=== PATIENT | male | born 1945 | race Caucasian/White ===

== ENCOUNTER 2019-05-25 05:35 | Outpatient (RCR) | payer MEDICARE, MEDICAID, SELFPAY | END 2019-06-07 00:01 | LOC: ONCMED 05:35 | PROVIDERS: Family Provider Physician Assistant; Visit Provider Internal Medicine Hematology & Oncology | DX: D72.829 Elevated white blood cell count, unspecified (principal); J44.9 Chronic obstructive pulmonary disease, unspecified; L40.9 Psoriasis, unspecified; F17.210 Nicotine dependence, cigarettes, uncomplicated; Z79.52 Long term (current) use of systemic steroids ==

== ENCOUNTER 2019-06-22 14:17 | Outpatient (CLI) | payer MEDICARE, MEDICAID, SELFPAY ==
[2019-06-22 15:47] LABS: Basophils # 0.1 10^3/uL (0.0-0.1); Basophils % 0.7 %; Eosinophils # 0.5 10^3/uL (0.0-0.8); Eosinophils % 3.6 %; Hematocrit 37.8 % (42.0-52.0); Hemoglobin 12.2 g/dL (11.7-16.6); Lymphocytes # 4.5 10^3/uL (0.8-4.8); Lymphocytes % 31.8 %; Mean Corpuscular HGB Conc 32.3 g/dL (30.0-36.0); Mean Corpuscular Hemoglobin 29.2 pg (28.0-34.0); Mean Corpuscular Volume 90.4 fL (80-94); Mean Platelet Volume 11.3 fL (7.4-10.4); Monocytes # 1.2 10^3/uL (0.2-0.9); Monocytes % 8.4 %; Neutrophils # 7.7 10^3/uL (1.8-7.7); Neutrophils % 54.4 %; Nucleated Red Blood Cells % 0 %; Platelet Count 271 10^3/cmm (130-400); Red Blood Count 4.18 10^6/uL (4.1-5.3); White Blood Count 14.2 10^3/uL (4.0-10.0)
== END 2019-06-22 14:18 | disposition home or self-care (01) ==
LOC: ONCMED 14:21
PROVIDERS: Family Provider Physician Assistant; PCP Nurse Practitioner; Visit Provider Internal Medicine Hematology & Oncology
DX: D72.829 Elevated white blood cell count, unspecified (principal)
CPT/HCPCS: 85025

== ENCOUNTER 2019-06-23 13:06 | Outpatient (CLI) | payer MEDICARE, MEDICAID, SELFPAY ==
--- NOTE | 2019-06-23 13:40 | ONC FU_ITS ---
Dr. Mcconnell follow up note Patient: Fernando Hicks Unit #: [id number]: 1945 Dicatated By: Pilar Mcconnell M.D.Date of Visit:Jun 23, 2019 Onc Med Follow-up/Prog Note History of Present Illness: Mr. Fernando Hicks, is a 73-year-old gentleman with long-standing history of isolated leukocytosis as per patient and his , it was about 3-4 years ago when they were told about elevated white blood count and it was fluctuating type, sometime treated with oral antibiotics with resolution of leukocytosis. Denies any history of thrombocytopenia or anemia, denies any hematological evaluation done in the past. Denies any abdominal fullness or splenomegaly. Denies any peripheral lymphadenopathy. Denies any night sweats, fever or chills but history of off and on weight loss due to poor appetite. Patient has history of psoriasis involving upper extremities for which he has been using topical steroids triamcinolone for the last 3 years on a regular basis. He has a 60+ year history of smoking, still smoke about pack and half daily, No history of nosebleed or gum bleed, no history of melena or hematochezia or jaundice. Denies any fever or chills, denies any sinus related symptoms or dysuria or hematuria. Came for follow-up, denies any specific complaints, no fever or chills, no nausea or vomiting but mild chronic nonproductive cough still smoke about a pack a day, he is on home oxygen for severe COPD. Medications: Amiodarone HCl 1 Tablet (of 200 mg) Oral daily, Aspirin 1 Tablet (of 81 mg) Oral daily, DULoxetine HCl 1 Capsule (of 60 mg) Capsule Delayed Release Particles Oral daily, Esomeprazole Magnesium 1 Capsule (of 40 mg) Capsule Delayed Release Oral daily, Ferrous Sulfate 1 Tablet (of 325 (65 fe) mg) Oral daily, Furosemide 1 Tablet (of 40 mg) Oral daily, guaiFENesin 1 Tablet (of 600 mg) Oral b.i.d., HYDROcodone-Acetaminophen 1 Tablet (of 10-325 mg) Oral q 6 hours PRN, Metoprolol Tartrate 1 Tablet (of 50 mg) Oral b.i.d., Mexiletine HCl 1 Capsule (of 200 mg) Oral t.i.d., Nitroglycerin Intravenous, Potassium Chloride ER 1 Tablet (of 10 meq) Tablet, controlled release Oral daily, Ranexa 1 Tablet (of 500 mg) Tablet SR 12 HR Oral b.i.d., Triamcinolone Acetonide 1 (0.1 %) Cream Topical b.i.d., Vitamin D2 1 Tablet (of 2000 Units) Oral q 7 days Allergies: Bystolic, Carvedilol, Codeine Sulfate, Entresto, Lipitor, Lopid, Pletal, and Zocor. Review of Systems: Review of Systems is not available for this patient. Vital Signs: Performed on Jun 23, 2019 13:15 Height - 71.00 in Weight - 146.8 lbs (HIGH) BSA - 1.85 sq.m BMI - 20.47 Temperature - 97.9 F (LOW) Pulse - 68 /min Respiration - 26 /min BP - 121/56 mm(hg) O2 Sat - 98 % Pain - 6 Performance Status: Perf. Status is not available for this patient. Physical Examination: ENMT - No oral exudates, ulcers, masses, thrush or mucositis. Oropharynx clear. Tongue normal, Respiratory - Poor air entry,, Cardiovascular - Regular rate and rhythm of heart, Abdomen - Non-tender, non-distended, Good bowel sounds. No guarding or rebound tenderness. No pulsatile masses, Extremities - no edema. Lab/Imaging: Test performed on Jun 22, 2019 07:05 WBC 14.2 10 3/uL RBC 4.18 10^12/L HGB 12.2 g/dL HCT 37.8 % MCV 90.4 fL MCH 29.2 pg MCHC 32.3 g/dL RDW 14.0 % Platelet Count 271 10 3/cmm MPV 11.3 fL Lymphocytes 4.5 10^9/L Neutrophils 0.1 10 3/uL Monocytes 1.2 10^9/L Eosinophils 0.5 10^9/L Basophils 0.1 10^9/L Neutrophil % 3.6 % Manual Lymphocytes 31.8 % Manual Monocytes 8.4 % Manual Eosinophils 3.6 % Manual Basophils 0.7 % NRBCs 0.0 /100 WBC Test performed on May 25, 2019 15:10 Flow Cytometry, Acute Leukemia SEE SCANNED REPORT Test performed on May 24, 2019 09:10 Lymphocyte % 21.9 % Monocyte % 5.6 % Eosinophil % 3.0 % Basophils % 0.6 % Impression: Isolated mild leukocytosis etiology unclear myeloproliferative disorder versus reactive leukocytosis, most likely reactive especially due to long-term use of topical steroids or due to chronic smoking itself or related bronchitis or pulmonary inflammation/COPD chronic inflammation like psoriasis or subclinical upper respiratory infection due to chronic smoking. Considering his age Early myeloproliferative disorder like CML/CMML cannot be ruled out but less likely as .Flow cytometry on the whole blood done on 05/25/2019 showed no aberrant myeloid or lymphoid population detected Psoriasis involving upper extremities on topical steroids triamcinolone on a regular basis for the last 3 years 60+ year history of Chronic smoking still active Plan: Discussed with patient regarding his labs white blood count 14.2 hemoglobin 12.2 crit 37.8 platelets 271,000 and flow cytometry done on 05/25/2019 showed no aberrant myeloid or lymphoid population detected Clinically, patient is doing well no signs symptoms suggestive of acute infection but patient may have underlying chronic bronchitis due to chronic smoking and he is on home oxygen for the severe COPD. As far as isolated leukocytosis concern, flow cytometry on whole blood showed no aberrant myeloid or lymphoid population seen e.g. no evidence of myeloproliferative disorder so etiology of this isolated leukocytosis is most likely due to chronic smoking or underlying chronic bronchitis, COPD due to smoking or chronic skin disorder like psoriasis. No further workup is required from hematological point of view. We will see him on as-needed basis. he was advised to quit smoking and was offered any assistance he may need Signed By: Pilar Mcconnell M.D. <<Signature on File>>
== END 2019-06-23 13:07 | disposition home or self-care (01) ==
LOC: ONCMED 13:06
PROVIDERS: Family Provider Physician Assistant; PCP Physician Assistant; Visit Provider Internal Medicine Hematology & Oncology
DX: D72.829 Elevated white blood cell count, unspecified (principal); L40.8 Other psoriasis; Z79.899 Other long term (current) drug therapy; F17.210 Nicotine dependence, cigarettes, uncomplicated; J44.9 Chronic obstructive pulmonary disease, unspecified; Z99.81 Dependence on supplemental oxygen; Z79.82 Long term (current) use of aspirin; Z79.891 Long term (current) use of opiate analgesic; Z79.52 Long term (current) use of systemic steroids
CPT/HCPCS: G0463

== ENCOUNTER 2019-09-13 16:07 | Emergency (ER) | payer MEDICARE, MEDICAID, SELFPAY ==
[2019-09-13] VITALS (8 sets, daily range): BP systolic 106–130; BP diastolic 55–63; PULSE 60–80; RESP 16–24; TEMP 36.8; O2SAT 95–100; BMI 20.9
--- NOTE | 2019-09-13 16:16 | ED_ITS ---
Documented by User: Claudette Daniel DO 09/13/19 16:45 HPI - SOB/Dyspnea General: Chief Complaint: Shortness of Breath/Dyspnea Stated Complaint: WEAKNESS, SOB, POOR INTAKE Time Seen by Provider: 09/13/19 16:12 History of Present Illness: HPI Narrative: pt states he has been short of breath and weak for several dayys, he is confused and slurring his speech. He states he is normally on 4LNC O2 but today he turned it up to 6 L NC. He has been using his nebs constantly. He has had poor intake. MD elicited complaint: shortness of breath, cough and chest pain Pertinent past history: COPD Onset (ago): day(s) Context: recent illness Timing: constant Severity: severe Exacerbating factors: lying flat, exertion, movement and deep breaths Relieving factors: oxygen, rest and bronchodilators Known history of: COPD and congestive heart failure Associated symptoms: Reports chest pain, cough and diaphoresis; Deny abdominal pain, fever(s), nausea or vomiting Treatment prior to arrival: oxygen and bronchodilator Review of Systems General: Reports: 10 or more systems reviewed and unremarkable except in HPI and below Const: Reports: chills, body aches and diaphoresis; Denies: fever ENMT: Denies: throat pain Card: Reports: chest pain Resp: Reports: shortness of breath, productive cough and wheezing GI: Denies: abdominal pain, nausea, vomiting, diarrhea, constipation or blood in stool Musc: Denies: back pain or extremity swelling Skin/Breast: Denies: rash Neuro: Reports: difficulty walking and confusion; Denies: headache, numbness in extremities or weakness in extremities PFS ED PFSH: Social History Smoking and tobacco status: current every day smoker Physical Exam Const: COMMON NORMALS: no apparent distress GENERAL APPEARANCE: cooperative and lethargic NUTRITIONAL APPEARANCE: cachectic ORIENTATION/CONSCIOUSNESS: Yes oriented to person, Yes oriented to place, Yes oriented to time and Yes lethargic Neck/C-Spine: COMMON NORMALS: full ROM and no lymphadenopathy GENERAL: Yes normal visual inspection Chest: COMMONS NORMALS: inspection of chest normal Resp: COMMON NORMALS: normal respiratory effort, no retractions and no use of accessory muscles EFFORT & INSPECTION: Yes able to speak in complete sentences and No respiratory distress AUSCULTATION: wheezes expiratory wheezes and throughout and diminished lung sounds Cardio: COMMON NORMALS: regular rate, regular rhythm and no murmurs RATE: regular rate RHYTHM: regular rhythm GI: COMMON NORMALS: normal to inspection, nondistended, normoactive bowel sounds and non-tender INSPECTION: Yes normal to inspection AUSCULTATION: Yes normoactive bowel sounds : COMMON NORMALS: Yes no CVA tenderness BLADDER/KIDNEY EXAM: Yes no CVA tenderness Back/Pelvis: COMMON NORMALS: no CVA tenderness Extremity: GENERAL: Yes normal exam except as noted, No calf tenderness and Yes edema (+1) Neuro: SENSORIUM/ORIENTATION: Yes oriented to person, Yes oriented to place, Yes oriented to time and Yes lethargic GAIT: Yes unable to assess gait Course Vital Signs: Vital signs: Vital Signs Temperature 98.3 F 09/13/19 16:14 Pulse Rate 60 09/13/19 19:38 Respiratory Rate 16 09/13/19 19:38 Blood Pressure 130/63 09/13/19 19:38 Pulse Oximetry 96 09/13/19 19:38 MDM - SOB/Dyspnea Lab Data: Attestation: I reviewed the patient's lab results. Labs: Lab Results 09/13/19 09/13/19 09/13/19 Range/Units 07:54 16:20 16:20 WBC 16.2 H (4.0-10.0) 10^3/ uL RBC 3.39 L (4.1-5.3) 10^6/u L Hgb 10.0 L (11.7-16.6) g/dL Hct 31.7 L (42.0-52.0) % MCV 93.5 (80-94) fL MCH 29.5 (28.0-34.0) pg MCHC 31.5 (30.0-36.0) g/dL RDW 13.8 (12.1-15.1) % Plt Count 277 (130-400) 10^3/c mm MPV 11.2 H (7.4-10.4) fL Neut % (Auto) 82.0 % Lymph % (Auto) 7.6 % Dickson % (Auto) 8.6 % Eos % (Auto) 0.1 % Baso % (Auto) 0.4 % Neut # (Auto) 13.3 H (1.8-7.7) 10^3/u L Lymph # (Auto) 1.2 (0.8-4.8) 10^3/u L Dickson # (Auto) 1.4 H (0.2-0.9) 10^3/u L Eos # (Auto) 0.0 (0.0-0.8) 10^3/u L Baso # (Auto) 0.1 (0.0-0.1) 10^3/u L Nucleated RBC % (a uto) 0.1 % Nucleated RBCs # 0.0 /100WBC PT (10.5-13.3) SECO NDS INR (0.8-1.2) APTT (23.9-36.7) SECO NDS Specimen Type Sample Site ABG pH (7.35-7.45) ABG pCO2 (35-45) mmHg ABG pO2 (80.0-100.0) mmH g ABG HCO3 (22-26) mmol/L ABG O2 Saturation ABG Base Excess (-2.0-2.0) mmol/ L Geraldo Test A-a O2 Gradient (5-10) mmHg Hematocrit (42-52) % Hgb O2 Saturation (95-100) % Carboxyhemoglobin (0.4-20.1) %THgb Methemoglobin (0.4-1.5) % Total Hemoglobin (14-18) g/dL Ionized Calcium (1.1-1.4) mmol/L O2 Delivery Device O2 Liters/Min % FiO2 % Fur Machine Operator ID Sodium 132 L (136-145) mmol/L Potassium 4.8 (3.5-5.1) mmol/L Chloride 95 L (98-107) mmol/L Carbon Dioxide 19 L (22-29) mmol/L Anion Gap 22.8 H (5-19) BUN 39 H (8-23) mg/dL Creatinine 1.7 H (0.7-1.2) mg/dL Glucose 130 H (65-115) mg/dL Calculated Osmolal ity 273 L (285-295) mOsm/k g Lactate (0.5-2.2) mmol/L Calcium 9.7 (8.5-10.5) mg/dL Total Bilirubin 0.9 (0.15-1.2) mg/dL AST 503 H (0-40) U/L ALT 564 H (0-41) U/L Alkaline Phosphata se 312 H (40-130) IU/L Ammonia (16-60) umol/L Troponin T Baselin e 317 H* (0-15) ng/mL Troponin T 120 Min barrow (0-15) ng/mL Delta Troponin T NT-Pro-B Natriuret Pep 14796 H (0-125) pg/mL Total Protein 7.3 (6.6-8.7) g/dL Albumin 4.0 (3.5-5.2) g/dL Globulin 3.3 (1.3-4.6) g/dL Lipase (13-60) U/L Urine Color (Yellow) Urine Appearance (CLEAR) Urine pH (5-7) Ur Specific Gravit y (1.005-1.030) Urine Protein (Negative) Urine Glucose (UA) (Normal) Urine Ketones (Negative) Urine Blood (Negative) Urine Nitrate (Negative) Urine Bilirubin (NEGATIVE) Urine Urobilinogen (Negative) mg/dL Ur Leukocyte Shanta ase (Negative) Urine RBC (0-2) /hpf Urine WBC (0-5) /hpf Ur Squamous Epith Cells (0-5) Urine Bacteria (NONE) Salicylates (3-10) mg/dL Urine Opiates Scre en (Negative) ng/mL Acetaminophen (10-30) ug/mL Ur Barbiturates Sc reen (Negative) ng/mL Ur Phencyclidine S crn (Negative) ng/mL Ur Amphetamines Sc reen (Negative) ng/mL U Benzodiazepines Scrn (Negative) ng/mL Urine Cocaine Scre en (Negative) ng/mL U Marijuana (THC) Screen (Negative) ng/mL Ethyl Alcohol (0-10) mg/dL Influenza Type A A g (Negative) Influenza Type B A g (Negative) 09/13/19 09/13/19 09/13/19 Range/Units 16:20 16:20 16:26 WBC (4.0-10.0) 10^3/ uL RBC (4.1-5.3) 10^6/u L Hgb (11.7-16.6) g/dL Hct (42.0-52.0) % MCV (80-94) fL MCH (28.0-34.0) pg MCHC (30.0-36.0) g/dL RDW (12.1-15.1) % Plt Count (130-400) 10^3/c mm MPV (7.4-10.4) fL Neut % (Auto) % Lymph % (Auto) % Dickson % (Auto) % Eos % (Auto) % Baso % (Auto) % Neut # (Auto) (1.8-7.7) 10^3/u L Lymph # (Auto) (0.8-4.8) 10^3/u L Dickson # (Auto) (0.2-0.9) 10^3/u L Eos # (Auto) (0.0-0.8) 10^3/u L Baso # (Auto) (0.0-0.1) 10^3/u L Nucleated RBC % (a uto) % Nucleated RBCs # /100WBC PT 19.50 H (10.5-13.3) SECO NDS INR 1.59 H (0.8-1.2) APTT 30.7 (23.9-36.7) SECO NDS Specimen Type Arterial Sample Site Brachial, left ABG pH 7.41 (7.35-7.45) ABG pCO2 30.0 L (35-45) mmHg ABG pO2 114.0 H (80.0-100.0) mmH g ABG HCO3 19.0 L (22-26) mmol/L ABG O2 Saturation 98.8 ABG Base Excess -4.8 L (-2.0-2.0) mmol/ L Geraldo Test Pos A-a O2 Gradient 98.4 H (5-10) mmHg Hematocrit 31.4 L (42-52) % Hgb O2 Saturation 96.8 (95-100) % Carboxyhemoglobin 1.0 (0.4-20.1) %THgb Methemoglobin 1.0 (0.4-1.5) % Total Hemoglobin 10.2 L (14-18) g/dL Ionized Calcium 1.2 (1.1-1.4) mmol/L O2 Delivery Device Nc O2 Liters/Min 4.0 % FiO2 36.0 % Fur Machine Operator ID cak Sodium 134.0 (136-145) mmol/L Potassium 4.8 (3.5-5.1) mmol/L Chloride (98-107) mmol/L Carbon Dioxide (22-29) mmol/L Anion Gap (5-19) BUN (8-23) mg/dL Creatinine (0.7-1.2) mg/dL Glucose 119.0 H (65-115) mg/dL Calculated Osmolal ity (285-295) mOsm/k g Lactate 2.6 H (0.5-2.2) mmol/L Calcium (8.5-10.5) mg/dL Total Bilirubin (0.15-1.2) mg/dL AST (0-40) U/L ALT (0-41) U/L Alkaline Phosphata se (40-130) IU/L Ammonia (16-60) umol/L Troponin T Baselin e (0-15) ng/mL Troponin T 120 Min barrow (0-15) ng/mL Delta Troponin T NT-Pro-B Natriuret Pep (0-125) pg/mL Total Protein (6.6-8.7) g/dL Albumin (3.5-5.2) g/dL Globulin (1.3-4.6) g/dL Lipase (13-60) U/L Urine Color (Yellow) Urine Appearance (CLEAR) Urine pH (5-7) Ur Specific Gravit y (1.005-1.030) Urine Protein (Negative) Urine Glucose (UA) (Normal) Urine Ketones (Negative) Urine Blood (Negative) Urine Nitrate (Negative) Urine Bilirubin (NEGATIVE) Urine Urobilinogen (Negative) mg/dL Ur Leukocyte Shanta ase (Negative) Urine RBC (0-2) /hpf Urine WBC (0-5) /hpf Ur Squamous Epith Cells (0-5) Urine Bacteria (NONE) Salicylates (3-10) mg/dL Urine Opiates Scre en (Negative) ng/mL Acetaminophen (10-30) ug/mL Ur Barbiturates Sc reen (Negative) ng/mL Ur Phencyclidine S crn (Negative) ng/mL Ur Amphetamines Sc reen (Negative) ng/mL U Benzodiazepines Scrn (Negative) ng/mL Urine Cocaine Scre en (Negative) ng/mL U Marijuana (THC) Screen (Negative) ng/mL Ethyl Alcohol (0-10) mg/dL Influenza Type A A g (Negative) Influenza Type B A g (Negative) 04/07/20 04/07/20 04/07/20 Range/Units 17:04 18:07 18:07 WBC (4.0-10.0) 10^3/ uL RBC (4.1-5.3) 10^6/u L Hgb (11.7-16.6) g/dL Hct (42.0-52.0) % MCV (80-94) fL MCH (28.0-34.0) pg MCHC (30.0-36.0) g/dL RDW (12.1-15.1) % Plt Count (130-400) 10^3/c mm MPV (7.4-10.4) fL Neut % (Auto) % Lymph % (Auto) % Dickson % (Auto) % Eos % (Auto) % Baso % (Auto) % Neut # (Auto) (1.8-7.7) 10^3/u L Lymph # (Auto) (0.8-4.8) 10^3/u L Dickson # (Auto) (0.2-0.9) 10^3/u L Eos # (Auto) (0.0-0.8) 10^3/u L Baso # (Auto) (0.0-0.1) 10^3/u L Nucleated RBC % (a uto) % Nucleated RBCs # /100WBC PT (10.5-13.3) SECO NDS INR (0.8-1.2) APTT (23.9-36.7) SECO NDS Specimen Type Sample Site ABG pH (7.35-7.45) ABG pCO2 (35-45) mmHg ABG pO2 (80.0-100.0) mmH g ABG HCO3 (22-26) mmol/L ABG O2 Saturation ABG Base Excess (-2.0-2.0) mmol/ L Geraldo Test A-a O2 Gradient (5-10) mmHg Hematocrit (42-52) % Hgb O2 Saturation (95-100) % Carboxyhemoglobin (0.4-20.1) %THgb Methemoglobin (0.4-1.5) % Total Hemoglobin (14-18) g/dL Ionized Calcium (1.1-1.4) mmol/L O2 Delivery Device O2 Liters/Min % FiO2 % Fur Machine Operator ID Sodium (136-145) mmol/L Potassium (3.5-5.1) mmol/L Chloride (98-107) mmol/L Carbon Dioxide (22-29) mmol/L Anion Gap (5-19) BUN (8-23) mg/dL Creatinine (0.7-1.2) mg/dL Glucose (65-115) mg/dL Calculated Osmolal ity (285-295) mOsm/k g Lactate (0.5-2.2) mmol/L Calcium (8.5-10.5) mg/dL Total Bilirubin (0.15-1.2) mg/dL AST (0-40) U/L ALT (0-41) U/L Alkaline Phosphata se (40-130) IU/L Ammonia (16-60) umol/L Troponin T Baselin e (0-15) ng/mL Troponin T 120 Min barrow 282.6 H (0-15) ng/mL Delta Troponin T Pacs Administrator NT-Pro-B Natriuret Pep (0-125) pg/mL Total Protein (6.6-8.7) g/dL Albumin (3.5-5.2) g/dL Globulin (1.3-4.6) g/dL Lipase 21 (13-60) U/L Urine Color (Yellow) Urine Appearance (CLEAR) Urine pH (5-7) Ur Specific Gravit y (1.005-1.030) Urine Protein (Negative) Urine Glucose (UA) (Normal) Urine Ketones (Negative) Urine Blood (Negative) Urine Nitrate (Negative) Urine Bilirubin (NEGATIVE) Urine Urobilinogen (Negative) mg/dL Ur Leukocyte Shanta ase (Negative) Urine RBC (0-2) /hpf Urine WBC (0-5) /hpf Ur Squamous Epith Cells (0-5) Urine Bacteria (NONE) Salicylates 0.7 L (3-10) mg/dL Urine Opiates Scre en (Negative) ng/mL Acetaminophen < 5.0 L (10-30) ug/mL Ur Barbiturates Sc reen (Negative) ng/mL Ur Phencyclidine S crn (Negative) ng/mL Ur Amphetamines Sc reen (Negative) ng/mL U Benzodiazepines Scrn (Negative) ng/mL Urine Cocaine Scre en (Negative) ng/mL U Marijuana (THC) Screen (Negative) ng/mL Ethyl Alcohol < 10 (0-10) mg/dL Influenza Type A A g Negative (Negative) Influenza Type B A g Negative (Negative) 09/13/19 09/13/19 09/13/19 Range/Units 18:47 20:05 20:05 WBC (4.0-10.0) 10^3/ uL RBC (4.1-5.3) 10^6/u L Hgb (11.7-16.6) g/dL Hct (42.0-52.0) % MCV (80-94) fL MCH (28.0-34.0) pg MCHC (30.0-36.0) g/dL RDW (12.1-15.1) % Plt Count (130-400) 10^3/c mm MPV (7.4-10.4) fL Neut % (Auto) % Lymph % (Auto) % Dickson % (Auto) % Eos % (Auto) % Baso % (Auto) % Neut # (Auto) (1.8-7.7) 10^3/u L Lymph # (Auto) (0.8-4.8) 10^3/u L Dickson # (Auto) (0.2-0.9) 10^3/u L Eos # (Auto) (0.0-0.8) 10^3/u L Baso # (Auto) (0.0-0.1) 10^3/u L Nucleated RBC % (a uto) % Nucleated RBCs # /100WBC PT (10.5-13.3) SECO NDS INR (0.8-1.2) APTT (23.9-36.7) SECO NDS Specimen Type Sample Site ABG pH (7.35-7.45) ABG pCO2 (35-45) mmHg ABG pO2 (80.0-100.0) mmH g ABG HCO3 (22-26) mmol/L ABG O2 Saturation ABG Base Excess (-2.0-2.0) mmol/ L Geraldo Test A-a O2 Gradient (5-10) mmHg Hematocrit (42-52) % Hgb O2 Saturation (95-100) % Carboxyhemoglobin (0.4-20.1) %THgb Methemoglobin (0.4-1.5) % Total Hemoglobin (14-18) g/dL Ionized Calcium (1.1-1.4) mmol/L O2 Delivery Device O2 Liters/Min % FiO2 % Fur Machine Operator ID Sodium (136-145) mmol/L Potassium (3.5-5.1) mmol/L Chloride (98-107) mmol/L Carbon Dioxide (22-29) mmol/L Anion Gap (5-19) BUN (8-23) mg/dL Creatinine (0.7-1.2) mg/dL Glucose (65-115) mg/dL Calculated Osmolal ity (285-295) mOsm/k g Lactate (0.5-2.2) mmol/L Calcium (8.5-10.5) mg/dL Total Bilirubin (0.15-1.2) mg/dL AST (0-40) U/L ALT (0-41) U/L Alkaline Phosphata se (40-130) IU/L Ammonia 28 (16-60) umol/L Troponin T Baselin e (0-15) ng/mL Troponin T 120 Min barrow (0-15) ng/mL Delta Troponin T NT-Pro-B Natriuret Pep (0-125) pg/mL Total Protein (6.6-8.7) g/dL Albumin (3.5-5.2) g/dL Globulin (1.3-4.6) g/dL Lipase (13-60) U/L Urine Color Tiffany (Yellow) Urine Appearance Clear (CLEAR) Urine pH 5 (5-7) Ur Specific Gravit y 1.020 (1.005-1.030) Urine Protein Trace (Negative) Urine Glucose (UA) Norm (Normal) Urine Ketones Negative (Negative) Urine Blood Neg (Negative) Urine Nitrate Negative (Negative) Urine Bilirubin Neg (NEGATIVE) Urine Urobilinogen 4 H (Negative) mg/dL Ur Leukocyte Shanta ase Trace H (Negative) Urine RBC None (0-2) /hpf Urine WBC 0-4 H (0-5) /hpf Ur Squamous Epith Cells 0-4 H (0-5) Urine Bacteria 2+ H (NONE) Salicylates (3-10) mg/dL Urine Opiates Scre en Positive H (Negative) ng/mL Acetaminophen (10-30) ug/mL Ur Barbiturates Sc reen Negative (Negative) ng/mL Ur Phencyclidine S crn Negative (Negative) ng/mL Ur Amphetamines Sc reen Positive H (Negative) ng/mL U Benzodiazepines Scrn Negative (Negative) ng/mL Urine Cocaine Scre en Negative (Negative) ng/mL U Marijuana (THC) Screen Negative (Negative) ng/mL Ethyl Alcohol (0-10) mg/dL Influenza Type A A g (Negative) Influenza Type B A g (Negative) EKG Data^: EKG 1: Attestation: I personally reviewed and interpreted this EKG as follows: EKG Interpretation Date: 09/13/19 EKG interpretation time: 16:42 Interpretation: dual chamber pacer rate 60, prolonged qtc 550 Discharge Plan Discharge Patient Disposition: Clinical Impression: Cardiopulmonary arrest Condition: Stable Referrals: Irene Garza PA [Primary Care Provider] - Sign Out Sign Out Data: Patient Sign Out occurred on 09/13/19 at 17:09. Patient's care was discussed, and care was transferred from to Ciara Rivers. Coding Level of Care Code ED Savings Counselor for Chg Fwd Exam Comprehensive Documented by User: Ciara Rievrs 09/13/19 22:19 HPI - SOB/Dyspnea General: Chief Complaint: Shortness of Breath/Dyspnea Stated Complaint: WEAKNESS, SOB, POOR INTAKE Time Seen by Provider: 09/13/19 16:12 [facility] ED PFSH: Social History Smoking and tobacco status: current every day smoker Course Vital Signs: Vital signs: Vital Signs Temperature 98.3 F 09/13/19 16:14 Pulse Rate 60 09/13/19 19:38 Respiratory Rate 16 09/13/19 19:38 Blood Pressure 130/63 09/13/19 19:38 Pulse Oximetry 96 09/13/19 19:38 MDM - SOB/Dyspnea MDM Narrative: Medical decision making narrative: 17:00 -Case turned over to me at change of shift from Dr. Daniel. Please see her note for her history, physical exam and medical decision-making notes. Patient expresses to me that he has had some shortness of breath but feels overall weak. The patient's speech is slurred but he is able to communicate completely. He denies any f ever, chest pain, abdominal pain, vomiting, back pain or otherwise. The patient is a GCS of 13 for me with voice opening to speech and slightly slurred speech. At this time the patient shortness of breath cannot really be explained. His BNP is elevated but his chest x-ray does not look like pulmonary vascular congestion at all. We will go ahead and give the patient a small amount of fluid as he does not appear short of breath with normal pulse ox and no tachypnea. The saline will be to protect his kidneys when he goes to CT although his GFR is okay at this time. We will look for PE as a cause of his shortness of breath and a CT to evaluate his abdomen and pelvis as he has elevated liver enzymes but his ultrasound of his abdomen is normal. 21:00 -the patient was noted to be bradycardiac on telemetry. I walked into the room and nursing was present found the patient to be pulseless and not breathing. A code was called. Please see code note for specific timings and dosages of medicines. Patient was intubated by me and placed on the ventilator. Ultimately after 30 minutes of ACLS algorithms the patient had no improvement. He is without a pulse and in PEA arrest. The code was called at 2054. CT scans that had previously been performed revealed possible mesenteric ischemia as well as possible appendicitis. The patient had not been complaining of abdominal pain. The patient's urinalysis did come back positive for methamphetamines. It is possible the patient had an arrhythmia although nothing showed on telemetry. 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 Family will be notified. Patient's was notified of her 's . She had expressed to me the patient was a DNR but we had no record of this. She did understand why we did what we did. She will notify the rest of the family and come to see him here in the ER. Lab Data: Attestation: I reviewed the patient's lab results. Labs: Lab Results 09/13/19 09/13/19 09/13/19 Range/Units 07:54 16:20 16:20 WBC 16.2 H (4.0-10.0) 10^3/ uL RBC 3.39 L (4.1-5.3) 10^6/u L Hgb 10.0 L (11.7-16.6) g/dL Hct 31.7 L (42.0-52.0) % MCV 93.5 (80-94) fL MCH 29.5 (28.0-34.0) pg MCHC 31.5 (30.0-36.0) g/dL RDW 13.8 (12.1-15.1) % Plt Count 277 (130-400) 10^3/c mm MPV 11.2 H (7.4-10.4) fL Neut % (Auto) 82.0 % Lymph % (Auto) 7.6 % Dickson % (Auto) 8.6 % Eos % (Auto) 0.1 % Baso % (Auto) 0.4 % Neut # (Auto) 13.3 H (1.8-7.7) 10^3/u L Lymph # (Auto) 1.2 (0.8-4.8) 10^3/u L Dickson # (Auto) 1.4 H (0.2-0.9) 10^3/u L Eos # (Auto) 0.0 (0.0-0.8) 10^3/u L Baso # (Auto) 0.1 (0.0-0.1) 10^3/u L Nucleated RBC % (a uto) 0.1 % Nucleated RBCs # 0.0 /100WBC PT (10.5-13.3) SECO NDS INR (0.8-1.2) APTT (23.9-36.7) SECO NDS Specimen Type Sample Site ABG pH (7.35-7.45) ABG pCO2 (35-45) mmHg ABG pO2 (80.0-100.0) mmH g ABG HCO3 (22-26) mmol/L ABG O2 Saturation ABG Base Excess (-2.0-2.0) mmol/ L Geraldo Test A-a O2 Gradient (5-10) mmHg Hematocrit (42-52) % Hgb O2 Saturation (95-100) % Carboxyhemoglobin (0.4-20.1) %THgb Methemoglobin (0.4-1.5) % Total Hemoglobin (14-18) g/dL Ionized Calcium (1.1-1.4) mmol/L O2 Delivery Device O2 Liters/Min % FiO2 % Fur Machine Operator ID Sodium 132 L (136-145) mmol/L Potassium 4.8 (3.5-5.1) mmol/L Chloride 95 L (98-107) mmol/L Carbon Dioxide 19 L (22-29) mmol/L Anion Gap 22.8 H (5-19) BUN 39 H (8-23) mg/dL Creatinine 1.7 H (0.7-1.2) mg/dL Glucose 130 H (65-115) mg/dL Calculated Osmolal ity 273 L (285-295) mOsm/k g Lactate (0.5-2.2) mmol/L Calcium 9.7 (8.5-10.5) mg/dL Total Bilirubin 0.9 (0.15-1.2) mg/dL AST 503 H (0-40) U/L ALT 564 H (0-41) U/L Alkaline Phosphata se 312 H (40-130) IU/L Ammonia (16-60) umol/L Troponin T Baselin e 317 H* (0-15) ng/mL Troponin T 120 Min barrow (0-15) ng/mL Delta Troponin T NT-Pro-B Natriuret Pep 69194 H (0-125) pg/mL Total Protein 7.3 (6.6-8.7) g/dL Albumin 4.0 (3.5-5.2) g/dL Globulin 3.3 (1.3-4.6) g/dL Lipase (13-60) U/L Urine Color (Yellow) Urine Appearance (CLEAR) Urine pH (5-7) Ur Specific Gravit y (1.005-1.030) Urine Protein (Negative) Urine Glucose (UA) (Normal) Urine Ketones (Negative) Urine Blood (Negative) Urine Nitrate (Negative) Urine Bilirubin (NEGATIVE) Urine Urobilinogen (Negative) mg/dL Ur Leukocyte Shanta ase (Negative) Urine RBC (0-2) /hpf Urine WBC (0-5) /hpf Ur Squamous Epith Cells (0-5) Urine Bacteria (NONE) Salicylates (3-10) mg/dL Urine Opiates Scre en (Negative) ng/mL Acetaminophen (10-30) ug/mL Ur Barbiturates Sc reen (Negative) ng/mL Ur Phencyclidine S crn (Negative) ng/mL Ur Amphetamines Sc reen (Negative) ng/mL U Benzodiazepines Scrn (Negative) ng/mL Urine Cocaine Scre en (Negative) ng/mL U Marijuana (THC) Screen (Negative) ng/mL Ethyl Alcohol (0-10) mg/dL Influenza Type A A g (Negative) Influenza Type B A g (Negative) 09/13/19 09/13/19 09/13/19 Range/Units 16:20 16:20 16:26 WBC (4.0-10.0) 10^3/ uL RBC (4.1-5.3) 10^6/u L Hgb (11.7-16.6) g/dL Hct (42.0-52.0) % MCV (80-94) fL MCH (28.0-34.0) pg MCHC (30.0-36.0) g/dL RDW (12.1-15.1) % Plt Count (130-400) 10^3/c mm MPV (7.4-10.4) fL Neut % (Auto) % Lymph % (Auto) % Dickson % (Auto) % Eos % (Auto) % Baso % (Auto) % Neut # (Auto) (1.8-7.7) 10^3/u L Lymph # (Auto) (0.8-4.8) 10^3/u L Dickson # (Auto) (0.2-0.9) 10^3/u L Eos # (Auto) (0.0-0.8) 10^3/u L Baso # (Auto) (0.0-0.1) 10^3/u L Nucleated RBC % (a uto) % Nucleated RBCs # /100WBC PT 19.50 H (10.5-13.3) SECO NDS INR 1.59 H (0.8-1.2) APTT 30.7 (23.9-36.7) SECO NDS Specimen Type Arterial Sample Site Brachial, left ABG pH 7.41 (7.35-7.45) ABG pCO2 30.0 L (35-45) mmHg ABG pO2 114.0 H (80.0-100.0) mmH g ABG HCO3 19.0 L (22-26) mmol/L ABG O2 Saturation 98.8 ABG Base Excess -4.8 L (-2.0-2.0) mmol/ L Geraldo Test Pos A-a O2 Gradient 98.4 H (5-10) mmHg Hematocrit 31.4 L (42-52) % Hgb O2 Saturation 96.8 (95-100) % Carboxyhemoglobin 1.0 (0.4-20.1) %THgb Methemoglobin 1.0 (0.4-1.5) % Total Hemoglobin 10.2 L (14-18) g/dL Ionized Calcium 1.2 (1.1-1.4) mmol/L O2 Delivery Device Nc O2 Liters/Min 4.0 % FiO2 36.0 % Fur Machine Operator ID cak Sodium 134.0 (136-145) mmol/L Potassium 4.8 (3.5-5.1) mmol/L Chloride (98-107) mmol/L Carbon Dioxide (22-29) mmol/L Anion Gap (5-19) BUN (8-23) mg/dL Creatinine (0.7-1.2) mg/dL Glucose 119.0 H (65-115) mg/dL Calculated Osmolal ity (285-295) mOsm/k g Lactate 2.6 H (0.5-2.2) mmol/L Calcium (8.5-10.5) mg/dL Total Bilirubin (0.15-1.2) mg/dL AST (0-40) U/L ALT (0-41) U/L Alkaline Phosphata se (40-130) IU/L Ammonia (16-60) umol/L Troponin T Baselin e (0-15) ng/mL Troponin T 120 Min barrow (0-15) ng/mL Delta Troponin T NT-Pro-B Natriuret Pep (0-125) pg/mL Total Protein (6.6-8.7) g/dL Albumin (3.5-5.2) g/dL Globulin (1.3-4.6) g/dL Lipase (13-60) U/L Urine Color (Yellow) Urine Appearance (CLEAR) Urine pH (5-7) Ur Specific Gravit y (1.005-1.030) Urine Protein (Negative) Urine Glucose (UA) (Normal) Urine Ketones (Negative) Urine Blood (Negative) Urine Nitrate (Negative) Urine Bilirubin (NEGATIVE) Urine Urobilinogen (Negative) mg/dL Ur Leukocyte Shanta ase (Negative) Urine RBC (0-2) /hpf Urine WBC (0-5) /hpf Ur Squamous Epith Cells (0-5) Urine Bacteria (NONE) Salicylates (3-10) mg/dL Urine Opiates Scre en (Negative) ng/mL Acetaminophen (10-30) ug/mL Ur Barbiturates Sc reen (Negative) ng/mL Ur Phencyclidine S crn (Negative) ng/mL Ur Amphetamines Sc reen (Negative) ng/mL U Benzodiazepines Scrn (Negative) ng/mL Urine Cocaine Scre en (Negative) ng/mL U Marijuana (THC) Screen (Negative) ng/mL Ethyl Alcohol (0-10) mg/dL Influenza Type A A g (Negative) Influenza Type B A g (Negative) 09/13/19 09/13/19 09/13/19 Range/Units 17:04 18:07 18:07 WBC (4.0-10.0) 10^3/ uL RBC (4.1-5.3) 10^6/u L Hgb (11.7-16.6) g/dL Hct (42.0-52.0) % MCV (80-94) fL MCH (28.0-34.0) pg MCHC (30.0-36.0) g/dL RDW (12.1-15.1) % Plt Count (130-400) 10^3/c mm MPV (7.4-10.4) fL Neut % (Auto) % Lymph % (Auto) % Dickson % (Auto) % Eos % (Auto) % Baso % (Auto) % Neut # (Auto) (1.8-7.7) 10^3/u L Lymph # (Auto) (0.8-4.8) 10^3/u L Dickson # (Auto) (0.2-0.9) 10^3/u L Eos # (Auto) (0.0-0.8) 10^3/u L Baso # (Auto) (0.0-0.1) 10^3/u L Nucleated RBC % (a uto) % Nucleated RBCs # /100WBC PT (10.5-13.3) SECO NDS INR (0.8-1.2) APTT (23.9-36.7) SECO NDS Specimen Type Sample Site ABG pH (7.35-7.45) ABG pCO2 (35-45) mmHg ABG pO2 (80.0-100.0) mmH g ABG HCO3 (22-26) mmol/L ABG O2 Saturation ABG Base Excess (-2.0-2.0) mmol/ L Geraldo Test A-a O2 Gradient (5-10) mmHg Hematocrit (42-52) % Hgb O2 Saturation (95-100) % Carboxyhemoglobin (0.4-20.1) %THgb Methemoglobin (0.4-1.5) % Total Hemoglobin (14-18) g/dL Ionized Calcium (1.1-1.4) mmol/L O2 Delivery Device O2 Liters/Min % FiO2 % Fur Machine Operator ID Sodium (136-145) mmol/L Potassium (3.5-5.1) mmol/L Chloride (98-107) mmol/L Carbon Dioxide (22-29) mmol/L Anion Gap (5-19) BUN (8-23) mg/dL Creatinine (0.7-1.2) mg/dL Glucose (65-115) mg/dL Calculated Osmolal ity (285-295) mOsm/k g Lactate (0.5-2.2) mmol/L Calcium (8.5-10.5) mg/dL Total Bilirubin (0.15-1.2) mg/dL AST (0-40) U/L ALT (0-41) U/L Alkaline Phosphata se (40-130) IU/L Ammonia (16-60) umol/L Troponin T Baselin e (0-15) ng/mL Troponin T 120 Min barrow 282.6 H (0-15) ng/mL Delta Troponin T Pacs Administrator NT-Pro-B Natriuret Pep (0-125) pg/mL Total Protein (6.6-8.7) g/dL Albumin (3.5-5.2) g/dL Globulin (1.3-4.6) g/dL Lipase 21 (13-60) U/L Urine Color (Yellow) Urine Appearance (CLEAR) Urine pH (5-7) Ur Specific Gravit y (1.005-1.030) Urine Protein (Negative) Urine Glucose (UA) (Normal) Urine Ketones (Negative) Urine Blood (Negative) Urine Nitrate (Negative) Urine Bilirubin (NEGATIVE) Urine Urobilinogen (Negative) mg/dL Ur Leukocyte Shanta ase (Negative) Urine RBC (0-2) /hpf Urine WBC (0-5) /hpf Ur Squamous Epith Cells (0-5) Urine Bacteria (NONE) Salicylates 0.7 L (3-10) mg/dL Urine Opiates Scre en (Negative) ng/mL Acetaminophen < 5.0 L (10-30) ug/mL Ur Barbiturates Sc reen (Negative) ng/mL Ur Phencyclidine S crn (Negative) ng/mL Ur Amphetamines Sc reen (Negative) ng/mL U Benzodiazepines Scrn (Negative) ng/mL Urine Cocaine Scre en (Negative) ng/mL U Marijuana (THC) Screen (Negative) ng/mL Ethyl Alcohol < 10 (0-10) mg/dL Influenza Type A A g Negative (Negative) Influenza Type B A g Negative (Negative) 09/13/19 09/13/19 09/13/19 Range/Units 18:47 20:05 20:05 WBC (4.0-10.0) 10^3/ uL RBC (4.1-5.3) 10^6/u L Hgb (11.7-16.6) g/dL Hct (42.0-52.0) % MCV (80-94) fL MCH (28.0-34.0) pg MCHC (30.0-36.0) g/dL RDW (12.1-15.1) % Plt Count (130-400) 10^3/c mm MPV (7.4-10.4) fL Neut % (Auto) % Lymph % (Auto) % Dickson % (Auto) % Eos % (Auto) % Baso % (Auto) % Neut # (Auto) (1.8-7.7) 10^3/u L Lymph # (Auto) (0.8-4.8) 10^3/u L Dickson # (Auto) (0.2-0.9) 10^3/u L Eos # (Auto) (0.0-0.8) 10^3/u L Baso # (Auto) (0.0-0.1) 10^3/u L Nucleated RBC % (a uto) % Nucleated RBCs # /100WBC PT (10.5-13.3) SECO NDS INR (0.8-1.2) APTT (23.9-36.7) SECO NDS Specimen Type Sample Site ABG pH (7.35-7.45) ABG pCO2 (35-45) mmHg ABG pO2 (80.0-100.0) mmH g ABG HCO3 (22-26) mmol/L ABG O2 Saturation ABG Base Excess (-2.0-2.0) mmol/ L Geraldo Test A-a O2 Gradient (5-10) mmHg Hematocrit (42-52) % Hgb O2 Saturation (95-100) % Carboxyhemoglobin (0.4-20.1) %THgb Methemoglobin (0.4-1.5) % Total Hemoglobin (14-18) g/dL Ionized Calcium (1.1-1.4) mmol/L O2 Delivery Device O2 Liters/Min % FiO2 % Fur Machine Operator ID Sodium (136-145) mmol/L Potassium (3.5-5.1) mmol/L Chloride (98-107) mmol/L Carbon Dioxide (22-29) mmol/L Anion Gap (5-19) BUN (8-23) mg/dL Creatinine (0.7-1.2) mg/dL Glucose (65-115) mg/dL Calculated Osmolal ity (285-295) mOsm/k g Lactate (0.5-2.2) mmol/L Calcium (8.5-10.5) mg/dL Total Bilirubin (0.15-1.2) mg/dL AST (0-40) U/L ALT (0-41) U/L Alkaline Phosphata se (40-130) IU/L Ammonia 28 (16-60) umol/L Troponin T Baselin e (0-15) ng/mL Troponin T 120 Min barrow (0-15) ng/mL Delta Troponin T NT-Pro-B Natriuret Pep (0-125) pg/mL Total Protein (6.6-8.7) g/dL Albumin (3.5-5.2) g/dL Globulin (1.3-4.6) g/dL Lipase (13-60) U/L Urine Color Tiffany (Yellow) Urine Appearance Clear (CLEAR) Urine pH 5 (5-7) Ur Specific Gravit y 1.020 (1.005-1.030) Urine Protein Trace (Negative) Urine Glucose (UA) Norm (Normal) Urine Ketones Negative (Negative) Urine Blood Neg (Negative) Urine Nitrate Negative (Negative) Urine Bilirubin Neg (NEGATIVE) Urine Urobilinogen 4 H (Negative) mg/dL Ur Leukocyte Shanta ase Trace H (Negative) Urine RBC None (0-2) /hpf Urine WBC 0-4 H (0-5) /hpf Ur Squamous Epith Cells 0-4 H (0-5) Urine Bacteria 2+ H (NONE) Salicylates (3-10) mg/dL Urine Opiates Scre en Positive H (Negative) ng/mL Acetaminophen (10-30) ug/mL Ur Barbiturates Sc reen Negative (Negative) ng/mL Ur Phencyclidine S crn Negative (Negative) ng/mL Ur Amphetamines Sc reen Positive H (Negative) ng/mL U Benzodiazepines Scrn Negative (Negative) ng/mL Urine Cocaine Scre en Negative (Negative) ng/mL U Marijuana (THC) Screen Negative (Negative) ng/mL Ethyl Alcohol (0-10) mg/dL Influenza Type A A g (Negative) Influenza Type B A g (Negative) Imaging Data^: CT Head: Radiologist's impression: [place] [address] CT Scan Report Signed Patient: Fernando Hicks Unit #: [id number] : 1945 Age/Sex: 74 / M ADM Date: 09/13/19 Loc: ER Room/Bed: Attending Dr: Ordering Provider/Ordering MD: Ciara Rivers DO Date of Service: 09/13/19 Procedure(s): CT head wo con* [id number] Accession Number(s): [id number] Report Number: [id number] PROCEDURE INFORMATION: Exam: CT Head Without Contrast Exam date and time: 09/13/2019 6:16 PM Age: 74 years old Clinical indication: Altered mental status/memory loss; Additional info: Romano/ams TECHNIQUE: Imaging protocol: Computed tomography of the head without contrast. Total DLP: 962.72 mGy-cm Radiation optimization: All CT scans at this facility use at least one of these dose optimization techniques: automated exposure control; mA and/or kV adjustment per patient size (includes targeted exams where dose is matched to clinical indication); or iterative reconstruction. COMPARISON: CTA Head/Neck [id number] 06/11/2015 10:18 AM FINDINGS: Brain: There are moderate periventricular and subcortical lucencies consistent with chronic microvascular ischemic changes. The sifuentes-white differentiation is maintained. No hemorrhage. No edema. Ventricles: Normal. No ventriculomegaly. Bones/joints: Unremarkable. No acute fracture. Sinuses: Visualized sinuses are unremarkable. No fluid levels. Mastoid air cells: Visualized mastoid air cells are well aerated. Orbits: Bilateral cataract surgery. Soft tissues: Unremarkable. Vasculature: Vascular calcifications. Other findings: streak artifact degrades the images . CT/CT head wo con* [id number] IMPRESSION: No acute intracranial abnormality. Chronic microvascular ischemic changes. Radiation Dose CTDIVOL = (mGy): DLP = 962.72 (mGy-cm) Dictated By: Miguel Justin MD Signed By: Miguel Justin MD Signed Date/Time: 09/13/192008 DD/ 06 CT Chest: Radiologist's impression: [place] [address] CT Scan Report Signed with Katheryn Patient: Fernando Hicks Unit #: [id number] : 1945 Age/Sex: 74 / M ADM Date: 09/13/19 Loc: ER Room/Bed: Attending Dr: Ordering Provider/Ordering MD: Ciara Rivers DO Date of Service: 09/13/19 Procedure(s): CT angio chest w abd pel w con Accession Number(s): [id number] Report Number: [id number] ADDENDUM The findings were discussed with . Addendum Dictated By: Miguel Justin MD Addendum Signed By: Miguel Justin MD Signed Date/Time: 09/13/19 47 Addendum Cosigned By: ADDENDUM Addendum Dictated By: Addendum Signed By: Signed Date/Time: Addendum Cosigned By: Miguel Justin MD [address]/CT angio chest w abd pel w con Impression should include: Mesenteric stranding. Etiology could be infectious/ischemia. Radiation Dose CTDIVOL = (mGy): DLP = 1369.41 1369.41 (mGy-cm) Addendum Dictated By: Miguel Justin MD Addendum Signed By: Miguel Justin MD Signed Date/Time: 09/13/19 47 Addendum Cosigned By: ADDENDUM CT/CT angio chest w abd pel w con THIS REPORT CONTAINS FINDINGS THAT MAY BE CRITICAL TO PATIENT CARE. The findings were verbally communicated via telephone conference with dr Mccoy at 8:44 PM CDT on 09/13/2019. The findings were acknowledged and understood. Radiation Dose CTDIVOL = (mGy): DLP = 1369.41 1369.41 (mGy-cm) Addendum Dictated By: Miguel Justin MD Addendum Signed By: Miguel Justin MD Signed Date/Time: 09/13/19 46 Addendum Cosigned By: PROCEDURE INFORMATION: Exam: CT Angiography Chest With Contrast Exam date and time: 09/13/2019 6:26 PM Age: 74 years old Clinical indication: Abdominal tenderness; Dyspnea; Prior surgery; Surgery type: Defib, open heart TECHNIQUE: Imaging protocol: Computed tomographic angiography of the chest with intravenous contrast. 3D rendering: MIP and/or 3D reconstructed images were created by the technologist. Total DLP: 1369.41 mGy-cm Radiation optimization: All CT scans at this facility use at least one of these dose optimization techniques: automated exposure control; mA and/or kV adjustment per patient size (includes targeted exams where dose is matched to clinical indication); or iterative reconstruction. Contrast material: VISI 320; Contrast volume: 95 ml; Contrast route: IV; COMPARISON: CT chest [facility] [id number] 08/12/2018 4:23 PM FINDINGS: Tubes, catheters and devices: Left approach dual lead pacemaker. Pulmonary arteries: Normal. No pulmonary emboli. Aorta: See Lungs finding. Lungs: Extensive centrilobular emphysematous changes. Linear areas of scarring in the lower lung arredondo. Atherosclerotic calcification of the aortic arch. Pleural space: Biapical pleural thickening. Heart: Coronary vasculature calcifications. Cardiomegaly. Lymph nodes: Unremarkable. No enlarged lymph nodes. Bones/joints: Diffuse demineralization of the bones. Chronic compression fracture of the T9 vertebra. Old healed left rib fractures. Soft tissues: Unremarkable. Other findings: Sternal wires. IMPRESSION: 1. Severe emphysematous changes. 2. No pulmonary embolism. PROCEDURE INFORMATION: Exam: CT Abdomen And Pelvis With Contrast Exam date and time: 09/13/2019 6:26 PM Age: 74 years old Clinical indication: Abdominal tenderness; Dyspnea; Prior surgery; Surgery type: Defib, open heart TECHNIQUE: Imaging protocol: Computed tomography of the abdomen and pelvis with intravenous contrast. Total DLP: 1369.41 mGy-cm Radiation optimization: All CT scans at this facility use at least one of these dose optimization techniques: automated exposure control; mA and/or kV adjustment per patient size (includes targeted exams where dose is matched to clinical indication); or iterative reconstruction. Contrast material: VISI 320; Contrast volume: 95 ml; Contrast route: IV; COMPARISON: CT chest [facility] [id number] 08/12/2018 4:23 PM FINDINGS: Liver: Normal. No mass. Gallbladder and bile ducts: Normal. No calcified stones. No ductal dilation. Pancreas: Normal. No ductal dilation. Spleen: Normal. No splenomegaly. Adrenals: Normal. No mass. Kidneys and ureters: Atrophy of the left kidney. Stomach and bowel: Unremarkable. No obstruction. No mucosal thickening. Appendix: Appendix is slightly prominent with no periappendiceal fat stranding. Intraperitoneal space: Small amount of free fluid in the pelvis. There is mesentery stranding (series 3, image 55 stranding in the mesentery, 56). Diffuse demineralization of the bones. Vasculature: Infrarenal abdominal aortic aneurysm measuring 3 cm. There is calcified and noncalcified plaque in the aorta. Lymph nodes: Unremarkable. No enlarged lymph nodes. Bladder: Unremarkable as visualized. Reproductive: Unremarkable as visualized. Bones/joints: See Intraperitoneal space finding. Soft tissues: Unremarkable. CT/CT angio chest w abd pel w con IMPRESSION: 1. Fat stranding in the mesentery with small amount of free fluid in the pelvis findings may represent mesenteritis. 2. Appendix is slightly prominent with no periappendiceal fat stranding. Clinical correlation. Radiation Dose CTDIVOL = (mGy): DLP = 1369.41 1369.41 (mGy-cm) Dictated By: Miguel Justin MD Signed By: Miguel Justin MD Signed Date/Time: 09/13/192042 DD/ 40 EKG Data^: EKG 1: Attestation: I personally reviewed and interpreted this EKG as follows: EKG Interpretation Date: 09/13/19 EKG interpretation time: 16:18 Interpretation: AV sequential pacemaker with a heart rate of 60 beats a minute, prolonged QT interval, no other acute ST-T wave changes. Discharge Plan Discharge Patient Disposition: Clinical Impression: Cardiopulmonary arrest Condition: Stable Referrals: Irene Garza PA [Primary Care Provider] - Sign Out Sign Out Data: Patient Sign Out occurred on 09/13/19 at 17:09. Patient's care was discussed, and care was transferred from to Ciara Hernandez [facility]. Coding Level of Care Code ED Savings Counselor for Chg Fwd Exam Comprehensive
--- NOTE | 2019-09-13 16:32 | ECG_ITS ---
Measurements Intervals [place] Rate: 60 P: 130 OK: 141 QRS: -83 QRSD: 202 T: 96 QT: 550 QTc: 550 ELECTRONIC ATRIAL PACEMAKER ELECTRONIC VENTRICULAR PACEMAKER PROLONGED QT INTERVAL CRITICAL TEST RESULT Compared to ECG 04/18/2019 05:54:59 Prolonged QT interval now present Electronically Signed On 09-14-2019 18:01:22 CDT by Rosy Rosa M.D. [email or web address]
--- NOTE | 2019-09-13 16:32 | XR_ITS ---
WS: [id number] CHEST XRAY TECHNIQUE: Portable chest. CLINICAL INFORMATION: pneumonia COMPARISON: FINDINGS: Heart: Cardiomegaly. Prominent left ventricle. Aortic calcification. Sternotomy. CABG. Cardiac pacer. Lungs: Chronic emphysematous changes with interstitial thickening. Trace left pleural fluid with slig ht left basilar atelectasis unchanged since 2019. Bones: Osteopenia. XR/XR chest 1V portable [id number] IMPRESSION: 1. Cardiomegaly with sternotomy and CABG. Cardiac pacer. 2. Chronic emphysematous changes. Trace left pleural fluid with left basilar a telectasis unchanged since 2019. 3. No new infiltrates.
[2019-09-13 16:38] LABS: ABG PH Result 7.41 (7.35-7.45); Alveolar-Arterial Oxygen Gradi 98.4 mmHg (5-10); Arterial Blood Gas Hematocrit 31.4 % (42-52); Base Excess ABG -4.8 mmol/L (-2.0-2.0); Blood Gas Allen Test Pos; Blood Gas Sample Site Brachial, left; Blood Gas Sample Type Arterial; HGB O2 Sat 96.8 % (95-100); Ionized Calcium Level - ABG 1.2 mmol/L (1.1-1.4); Oxygen Device NC; Oxygen Saturation ABG 98.8; Potassium Level - ABG 4.8 mmol/L (3.5-5.0); Total Hemoglobin 10.2 g/dL (14-18)
[2019-09-13] MEDS: albuterol 8 gm MDI 4 PUFF INHALATION (16:57)
[2019-09-13 17:03] LABS: Basophils # 0.1 10^3/uL (0.0-0.1); Basophils % 0.4 %; Eosinophils % 0.1 %; Hematocrit 31.7 % (42.0-52.0); Lactate (Lactic Acid level) 2.6 mmol/L (0.5-2.2); Lymphocytes # 1.2 10^3/uL (0.8-4.8); Lymphocytes % 7.6 %; Mean Corpuscular HGB Conc 31.5 g/dL (30.0-36.0); Mean Corpuscular Hemoglobin 29.5 pg (28.0-34.0); Mean Corpuscular Volume 93.5 fL (80-94); Mean Platelet Volume 11.2 fL (7.4-10.4); Monocytes # 1.4 10^3/uL (0.2-0.9); Monocytes % 8.6 %; Neutrophils # 13.3 10^3/uL (1.8-7.7); Nucleated Red Blood Cells % 0.1 %; Platelet Count 277 10^3/cmm (130-400); Red Blood Count 3.39 10^6/uL (4.1-5.3); Red Cell Distribution Width 13.8 % (12.1-15.1); White Blood Count 16.2 10^3/uL (4.0-10.0)
[2019-09-13] MEDS: aspirin 81 mg Chew Tablet 324 MG PO (17:08)
[2019-09-13] MEDS: nitroglycerin 1 gm/inch oint Pkt 1 INCH TOPICAL (17:08)
[2019-09-13 17:12] LABS: Troponin(5th) Baseline 317 ng/mL (0-15)
[2019-09-13 17:14] LABS: Alanine Aminotransferase 564 U/L (0-41); Alkaline Phosphatase 312 IU/L (40-130); Aspartate Amino Transferase 503 U/L (0-40); Blood Urea Nitrogen 39 mg/dL (8-23); Calcium 9.7 mg/dL (8.5-10.5); Carbon Dioxide 19 mmol/L (22-29); Globulin 3.3 g/dL (1.3-4.6); Glucose 130 mg/dL (65-115); NT Pro B Type Natriuretic Pept 11729 pg/mL (0-125); Total Bilirubin 0.9 mg/dL (0.15-1.2); Total Protein 7.3 g/dL (6.6-8.7)
--- NOTE | 2019-09-13 17:17 | US_ITS ---
WS: [id number] ULTRASOUND ABDOMEN CLINICAL INFORMATION: Abdominal Pain COMPARISON: None. FINDINGS: Liver Size: Normal. Craniocaudal length: 11.8 cm. Echogenicity: Normal. Surface nodularity: None. Mass (size and location): None. Bile ducts Intrahepatic ducts: Normal. Common bile duct diameter: 0.3 cm. Gallbladder Normal. Gallstones: None. Gallbladder sludge: None. Gallbladder wall thickening: None. Pericholecystic fluid: None. Sonographic Mcleod sign: Absent. Pancreas Not well visualized Spleen Splenomegaly: None. Craniocaudal length: 7.7 cm. Right kidney: Normal. Hydronephrosis: None. Size: 9.7 cm x 5.4 cm x 5.6 cm Left kidney: Normal. Hydronephrosis: None. Size: 9.0 cm x 4.6 cm x 4.6 cm. Abdominal aorta. Prominent hepatic vein reflux with dilated IVC can be seen with elevated right heart pressures. Sluggish portal flow is likely related to hepatic congestion. Ascites: None. US/US abdomen complete* [id number] IMPRESSION: 1. Liver is normal in appearance. 2. Normal gallbladder. No cholelithiasis. 3. Normal common bile duct. 4. Hepatic vein reflux with dilated IVC seen on the accompanying CTA compatibl e with elevated right heart pressures/congestive heart failure. 5. No hydronephrosis in right kidney.
--- NOTE | 2019-09-13 18:23 | CTR_ITS ---
PROCEDURE INFORMATION: Exam: CT Angiography Chest With Contrast Exam date and time: 09/13/2019 6:26 PM Age: 74 years old Clinical indication: Abdominal tenderness; Dyspnea; Prior surgery; Surgery type: Defib, open heart TECHNIQUE: Imaging protocol: Computed tomographic angiography of the chest with intravenous contrast. 3D rendering: MIP and/or 3D reconstructed images were created by the technologist. Total DLP: 1369.41 mGy-cm Radiation optimization: All CT scans at this facility use at least one of these dose optimization techniques: automated exposure control; mA and/or kV adjustment per patient size (includes targeted exams where dose is matched to clinical indication); or iterative reconstruction. Contrast material: VISI 320; Contrast volume: 95 ml; Contrast route: IV; COMPARISON: CT chest [facility] [id number] 08/12/2018 4:23 PM FINDINGS: Tubes, catheters and devices: Left approach dual lead pacemaker. Pulmonary arteries: Normal. No pulmonary emboli. Aorta: See Lungs finding. Lungs: Extensive centrilobular emphysematous changes. Linear areas of scarring in the lower lung arredondo. Atherosclerotic calcification of the aortic arch. Pleural space: Biapical pleural thickening. Heart: Coronary vasculature calcifications. Cardiomegaly. Lymph nodes: Unremarkable. No enlarged lymph nodes. Bones/joints: Diffuse demineralization of the bones. Chronic compression fracture of the T9 vertebra. Old healed left rib fractures. Soft tissues: Unremarkable. Other findings: Sternal wires. IMPRESSION: 1. Severe emphysematous changes. 2. No pulmonary embolism. PROCEDURE INFORMATION: Exam: CT Abdomen And Pelvis With Contrast Exam date and time: 09/13/2019 6:26 PM Age: 74 years old Clinical indication: Abdominal tenderness; Dyspnea; Prior surgery; Surgery type: Defib, open heart TECHNIQUE: Imaging protocol: Computed tomography of the abdomen and pelvis with intravenous contrast. Total DLP: 1369.41 mGy-cm Radiation optimization: All CT scans at this facility use at least one of these dose optimization techniques: automated exposure control; mA and/or kV adjustment per patient size (includes targeted exams where dose is matched to clinical indication); or iterative reconstruction. Contrast material: VISI 320; Contrast volume: 95 ml; Contrast route: IV; COMPARISON: CT chest [facility] [id number] 08/12/2018 4:23 PM FINDINGS: Liver: Normal. No mass. Gallbladder and bile ducts: Normal. No calcified stones. No ductal dilation. Pancreas: Normal. No ductal dilation. Spleen: Normal. No splenomegaly. Adrenals: Normal. No mass. Kidneys and ureters: Atrophy of the left kidney. Stomach and bowel: Unremarkable. No obstruction. No mucosal thickening. Appendix: Appendix is slightly prominent with no periappendiceal fat stranding. Intraperitoneal space: Small amount of free fluid in the pelvis. There is mesentery stranding (series 3, image 55 stranding in the mesentery, 56). Diffuse demineralization of the bones. Vasculature: Infrarenal abdominal aortic aneurysm measuring 3 cm. There is calcified and noncalcified plaque in the aorta. Lymph nodes: Unremarkable. No enlarged lymph nodes. Bladder: Unremarkable as visualized. Reproductive: Unremarkable as visualized. Bones/joints: See Intraperitoneal space finding. Soft tissues: Unremarkable. CT/CT angio chest w abd pel w con IMPRESSION: 1. Fat stranding in the mesentery with small amount of free fluid in the pelvis findings may represent mesenteritis. 2. Appendix is slightly prominent with no periappendiceal fat stranding. Clinical correlation. Radiation Dose CTDIVOL = (mGy): DLP = 1369.41~1369.41 (mGy-cm)
--- NOTE | 2019-09-13 18:23 | CTR_ITS ---
PROCEDURE INFORMATION: Exam: CT Head Without Contrast Exam date and time: 09/13/2019 6:16 PM Age: 74 years old Clinical indication: Altered mental status/memory loss; Additional info: Romano/ams TECHNIQUE: Imaging protocol: Computed tomography of the head without contrast. Total DLP: 962.72 mGy-cm Radiation optimization: All CT scans at this facility use at least one of these dose optimization techniques: automated exposure control; mA and/or kV adjustment per patient size (includes targeted exams where dose is matched to clinical indication); or iterative reconstruction. COMPARISON: CTA Head/Neck [id number] 06/11/2015 10:18 AM FINDINGS: Brain: There are moderate periventricular and subcortical lucencies consistent with chronic microvascular ischemic changes. The sifuentes-white differentiation is maintained. No hemorrhage. No edema. Ventricles: Normal. No ventriculomegaly. Bones/joints: Unremarkable. No acute fracture. Sinuses: Visualized sinuses are unremarkable. No fluid levels. Mastoid air cells: Visualized mastoid air cells are well aerated. Orbits: Bilateral cataract surgery. Soft tissues: Unremarkable. Vasculature: Vascular calcifications. Other findings: streak artifact degrades the images . CT/CT head wo con* [id number] IMPRESSION: No acute intracranial abnormality. Chronic microvascular ischemic changes. Radiation Dose CTDIVOL = (mGy): DLP = 962.72 (mGy-cm)
[2019-09-13 18:32] LABS: INR 1.59 (0.8-1.2); Partial Thromboplastin Time 30.7 SECONDS (23.9-36.7)
[2019-09-13] MEDS: sodium chloride 0.9% 1,000 ML 999 ML IV (18:36)
[2019-09-13 18:44] LABS: Influenza A by IFA Negative (Negative); Influenza B by IFA Negative (Negative)
[2019-09-13 19:04] LABS: Anion Gap 22.8 (5-19); Chloride 95 mmol/L (98-107); Osmolality Calculated 273 mOsm/kg (285-295); Potassium 4.8 mmol/L (3.5-5.1); Sodium 132 mmol/L (136-145)
[2019-09-13 19:15] LABS: Troponin 5 2HR 282.6 ng/mL (0-15)
[2019-09-13 19:32] LABS: Lipase 21 U/L (13-60); Salicylate 0.7 mg/dL (3-10)
[2019-09-13 19:50] LABS: Ammonia 28 umol/L (16-60)
[2019-09-13] MEDS: iodixanol 320 mg/mL 100mL Btl IV (19:53)
[2019-09-13 20:02] LABS: Acetaminophen < 5.0 ug/mL (10-30); Alcohol Level < 10 mg/dL (0-10)
--- NOTE | 2019-09-13 20:25 | PC.NURSE ---
and my self walked into to patients room and patient was found with no pulse, code blue called and staff present as cpr was started. Richard Rn, Resp, Sidney Coronel Rn and myself present. Cpr was performed, patient was intubated and protochol meds given. Patient was pronounced at 2054.
[2019-09-13 20:28] LABS: Glucose Urine UA Norm (Normal); Ketones Urine Negative (Negative); Protein Urine Trace (Negative); Urine Appearance Clear (CLEAR); Urine Color Amber (Yellow); pH Urine 5 (5-7)
[2019-09-13 20:29] LABS: Add Urine Culture? Yes; Amphetamines Screen Urine Positive (Negative); Bacteria Urine 2+; Barbiturates Screen Urine Negative (Negative); Benzodiazepines Screen Urine Negative (Negative); Bilirubin Urine Neg (NEGATIVE); Blood Urine Neg (Negative); Cocaine Screen Urine Negative (Negative); Leukocyte Esterase Urine Trace (Negative); Nitrate Urine Negative (Negative); Opiate Screen Urine Positive (Negative); PCP Screen Urine Negative (Negative); Squamous Epithelial Cell Urine 0-4 (0-5); THC Screen Urine Negative (Negative); Urobilinogen Urine 4 mg/dL (Negative); WBC Urine 0-4 /hpf (0-5)
[2019-09-13] MEDS: EPINEPHrine 0.1 mg/mL SYR 10 mL 1 MG IVP ×6 (20:33→21:55)
[2019-09-13] MEDS: sodium bicarbonate 8.4% 1 mEq/mL 50mL Syr 50 MEQ IVP (21:47)
--- NOTE | 2019-09-13 22:18 | PC.NURSE ---
I Called Phoenix Zamora([employer]), He advised that he will release body and needs nothing further from this patient. Home contacted and will be coming to get the body.
[2019-09-13 22:56] LABS: Hepatitis A Antibody IgM. Non-Reactive (Nonreactive); Hepatitis B Core IgM Non-Reactive (Nonreactive); Hepatitis B Surface Antigen. Non-Reactive (Nonreactive); Hepatitis C Virus Antibody Non-Reactive (Nonreactive)
--- NOTE | 2019-09-13 23:28 | PC.NURSE ---
Patient left in care [place].
== END 2019-09-13 23:28 | disposition expired ==
PROVIDERS: Emergency Medicine; Emergency Provider Emergency Medicine; Family Provider Physician Assistant; PCP Physician Assistant
DX: I46.9 Cardiac arrest, cause unspecified (principal); F15.10 Other stimulant abuse, uncomplicated; J44.9 Chronic obstructive pulmonary disease, unspecified; I11.0 Hypertensive heart disease with heart failure; I50.9 Heart failure, unspecified; Z99.81 Dependence on supplemental oxygen; Z95.0 Presence of cardiac pacemaker; F17.210 Nicotine dependence, cigarettes, uncomplicated
CPT/HCPCS: 12345; 36415; 36600; 70450; 71045; 71275; 74177; 76700; 80051; 80053; 80074; 80306; 80307; 81001; 82140; 82810; 83605; 83690; 83880; 83986; 84484; 85025; 85610; 85730; 87040; 87086; 87635; 87804; 93005; 94640; 96361; 96365; 96374; 96375; 99283; 99291; J0171; J2930; J7030; Q9967